=== PATIENT | male | born 1950 | race Hispanic/Latino ===

== ENCOUNTER 2024-09-30 10:57 | Day surgery (SDC) | payer OTHER ==
[2024-09-29 09:07] LABS: IMMATURE GRANULOCYTE ABSOLUTE 0.01 K/uL (0-1); NUCLEATED RED BLOOD CELLS 0.0 % (0.0-0.19); PLATELET COUNT (AUTO) 241 K/uL (130-400); RED BLOOD CELL COUNT(AUTO) 5.38 MIL/uL (4.50-6.20); RED CELL DISTRIBUTION WIDTH 12.3 % (11.0-15.5); WHITE BLOOD COUNT (AUTO) 6.3 K/uL (4.8-10.8)
--- NOTE | 2024-09-29 09:09 | EKG ---
[facility] Test Date: 2024-09-29 Test Time: 08:49:52 Pat Name: XIN MOONEY Department: [facility] Room: [facility] Gender: M Nailing Machine Feeder: [id number] : 1950 Requested By: ROSIE JUAREZ Order Number: [id number] Reading MD: Rosie Vasquez Measurements Intervals [place] Rate: 51 P: 49 CA: 176 QRS: -40 QRSD: 99 T: 19 QT: 475 QTc: 437 Interpretive Statements Sinus rhythm Left axis deviation No previous ECG available for comparison Electronically Signed On 10-02-2024 23:53:59 CDT by Rosie Vasquez Please click the below link to view image of tracing.
[2024-09-29 09:12] LABS: CREATININE 1.2 mg/dL (0.5-1.3); GLOMERULAR FILTR. RATE CALC 64.0 mL/min (>90); GLUCOSE,RANDOM 112.0 mg/dL (70-105); SODIUM SERUM 144.0 mmol/L (136-145); UREA NITROGEN, BLOOD 19.0 mg/dL (7-18)
[2024-09-29 09:23] VITALS: BP 141/69; PULSE 52; RESP 18; TEMP 97.2
[2024-09-30] VITALS (14 sets, daily range): BP systolic 109–136; BP diastolic 62–75; PULSE 48–54; RESP 15–18; TEMP 97.3–97.9
[~2024-09-30] VITALS: Ht 170.2 cm; Wt 78.9 kg
[~2024-09-30 10:57] MED LIST: AMLO-257 PO; DORZ10DR9 OU; LATA2.5D7 OP; LOSA1TAB42 PO; ROSU10TA72 PO; TADA10TA PO
[2024-09-30] MEDS: LACTATED RINGERS 1000ML 1,000 ML IV ONE (11:42)
[2024-09-30] MEDS ORDERED: MIDAZOLAM HCL 1 MG/ML 2ML VIAL ONE (13:26)
[2024-09-30] MEDS ORDERED: GLYCOPYRROLATE 0.2 MG/ML 5 ML VIAL ONE (14:07)
[2024-09-30] MEDS ORDERED: NEOSTIGMINE METHYLSULFATE 1MG/ML IV ONE (15:21)
[2024-09-30] MEDS ORDERED: SUGAMMADEX SODIUM 200 MG/2 ML VIAL IV ONE (15:27)
--- NOTE | 2024-09-30 16:02 | OP ---
Operative Note: DATE OF PROCEDURE: 09/30/24 SURGEON: ROSIE JUAREZ DO SHIPBUILDING DRAFTSPERSON: None ANESTHESIA: General ANESTHESIOLOGIST/INSERTER: Nathanael Bundy CRNA PREOPERATIVE DIAGNOSIS: Left inguinal hernia POSTOPERATIVE DIAGNOSIS: Left inguinal hernia, direct SYNOPSIS: None PROCEDURE: Robotic assisted laparoscopic left inguinal hernia repair with mesh ESTIMATED BLOOD LOSS: 5 cc INDICATIONS: This is a 74-year-old male with painful swelling in his left groin. On physical exam there was a reducible left inguinal hernia. I recommended robotic left inguinal hernia repair with mesh. I discussed the procedure in detail with the patient and his was at bedside. All questions were answered. Both expressed understanding and agreement with plan. Patient saw his surgical product sales consultant and primary physician outpatient and was deemed an appropriate risk for surgery. No further instructions given. DESCRIPTION OF PROCEDURE: Patient was placed on the operating table in the supine position. After adequate sedation the patient was intubated by anesthesia. A Mariee was placed. Perioperative antibiotics were given. The patient's abdomen was prepped and draped in the usual sterile fashion. A timeout was performed. A 1 cm skin incision was made in the left upper quadrant hayes's point. The peritoneal cavity was accessed using 5 mm Optiview technique. The abdomen was insufflated. The patient tolerated insufflation well. A laparoscopic camera was inserted and All 4 quadrants of the abdominal cavity were inspected and found to be grossly normal with the exception of a left direct inguinal defect. No inguinal hernia was apparent on the right side. 2 additional 8 mm robotic ports were placed in the midline and right hemiabdomen under direct visualization. The 5 mm port was exchanged for an 8 mm robotic port under direct visualization. The patient was placed in headdown position and the robot was docked. A peritoneal flap was created 6 cm cephalad to the defect. The hernia sac was reduced from the direct inguinal defect. The peritoneum was carefully dissected away from the gonadal vessels and vas deferens. The extent of the flap was 2 cm across the midline 3 cm below the pubic tubercle with the cord structures extra peritonealized and visualization of the psoas muscle underneath. A large 3D max mid mesh was placed into the preperitoneal space and affixed using 2 interrupted sutures of 2-0 Vicryl. One at the pubic tubercle and the other at the superior lateral aspect of the mesh. The peritoneum was approximated using 3-0 V-Loc in a running fashion. The abdomen was again inspected. The robot was undocked. The robotic ports were removed under direct visualization and found to be hemostatic. The skin was approximated using 4-0 Monocryl in a subcuticular fashion and dressed with Dermabond. All instrument, needle, and sponge counts were correct at the end of the procedure. The Mariee was removed. The patient was aroused from sedation, extubated, and transferred to the postanesthesia care unit in good condition. ROSIE JUAREZ DO Sep 30, 2024 16:02
--- NOTE | 2024-09-30 16:58 | NUR ---
POST OR PROCEDURE 3 SMALL INCISIONS TO THE FRONT ANTERIOR ABDOMEN. DERMABOND TO ALL THREE INCISIONS. NO REDNESS OR SWELLING NOTED TO THE INCISIONS. NO DRAINAGE OR BLEEDING TO THE INCISIONS. BINDER IN PLACE.
--- NOTE | 2024-09-30 17:02 | NUR ---
OR POST RECOVERY PROCEDURE 3 INCISIONS TO THE UPPER ANTERIOR ABDOMEN. DERMABOND TO ALL THREE INCISIONS. NO REDNESS OR SWELLING. NO DRAINAGE OR ACTIVE BLEEDING NOTED. BINDER IN PLACE TO ABDOMEN.
== END 2024-09-30 17:06 | disposition home or self-care (01) ==
LOC: DAH 10:57
PROVIDERS: ATTEND Student in an Organized Health Care Education/Training Program
DX: K40.90 Unilateral inguinal hernia, without obstruction or gangrene, not specified as recurrent (principal); I10 Essential (primary) hypertension; K21.9 Gastro-esophageal reflux disease without esophagitis; E78.00 Pure hypercholesterolemia, unspecified; Z98.890 Other specified postprocedural states; Z98.52 Vasectomy status; Z79.899 Other long term (current) drug therapy
CPT/HCPCS: 49650; 64488; S2900; 36415; 80048; 85025; 86850; 86900; 86901; 93005; A4344; J2250; J2270; J2405; J2704; J2710; J2795; J3010; J3490; J7030; J7120; A4215; A4216; A4221; A4222; A4223; A4600; A4663; A4930; A6260; C1769; C1781; J0690